=== PATIENT | female | born 1935 | race Caucasian/White ===

== ENCOUNTER 2017-01-17 10:24 | Emergency (ER) | payer MEDICARE ==
[~2017-01-17] VITALS: Ht 165.1 cm; Wt 57.0 kg
[~2017-01-17 10:24] MED LIST: ALEVE220 M1 PO; ALLEGRA-D 2424 HOUR PO; ALPRAZOLAM0.5 MG PO; ALTOPREV40 MG OR; AMLODIPINE BESY1 CA2 PO; AMOX PO; AMOXICILLIN/CL500 MG PO; ASA LO-DOSE81 MG OR; BABY ASPIRIN81 MG PO; BACTRIM DS1 TAB PO; BAYER ASPIRIN E81 MG PO; BENAZEPRIL5 M2 PO; CALCIUM + D600 MG PO; CIPRO XR500 M2 PO; CIPRO500 MG OR; CIPROFLOXACN500 MG PO; CLOBETASOL0.053 EX; Cyclobenzaprine Hcl; DARVOCET N-100100 - OR; DOLACET1 CAP PO; DOXYCYC MONO100 M3 PO; ENABLEX7.5 MG PO; ESTRACE VAG0.1 MG/GM VA; FLEXERIL10 MG PO; FLONASE0.05 %; FLUARIX QUADRIV1 IN2 IM; FLUARIX QUADRIV1 INJ IM; FLULAVAL IM; HYDROCO/APAP1 T10 PO; I-VITE PO; IBUPROFEN800 MG PO; K CLAV PO; LIPITOR10 MG OR; LORTAB 5 PO; LORTAB 5/3255 MG PO; LORTAB 7.5 PO; LORTAB 7.57.5 MG PO; LORTAB5 PO; LOTREL 2.5/101 CAP OR; LOTREL 5/101 CAP PO; LOTREL1 CA1 PO; LOTREL1 CA2 PO; LOVASTATIN10 MG PO; MEDDOSEPAK OR; MEDDOSEPAK PO; MELOXICAM7.5 MG PO; METO50TA52 OR; METO50TA52 PO; METRONIDAZOL500 MG PO; MEVACOR20 MG PO; MYRBETRIQ25 MG PO; NITROFURANTOIN100 MG PO; NORCO1 TA2 PO; PLAVIX75 MG PO; POTASSIUM99 MG PO; PRESERVISION AREDS PO; TEMAZEPAM15 MG PO; TESSALON PER100 MG PO; TIZANIDINE HCL4 MG PO; TOPROL XL50 MG OR; TOVIAZ4 MG PO; ULTRAM50 M1 OR; VIT C OR; ZOFRAN ODT8 MG PO; ZPAK PO; [UNRECOGNIZED DRUG - OTHER] OR
[2017-01-17] MEDS ORDERED: PREDNISONE50 MG PO (11:03)
[2017-01-17 11:21] VITALS: BP 114/53
== END 2017-01-17 11:21 | disposition home or self-care (01) ==
LOC: ED 10:24
DX: M54.12 Radiculopathy, cervical region (principal); M79.602 Pain in left arm; M25.512 Pain in left shoulder; M25.522 Pain in left elbow

== ENCOUNTER 2017-03-12 10:35 | Emergency (ER) | payer MEDICARE, OTHER ==
[~2017-03-12] VITALS: Ht 165.1 cm; Wt 55.0 kg
[~2017-03-12 10:35] MED LIST changes: +PREDNISONE50 MG PO
[2017-03-12 12:08] VITALS: BP 123/64
== END 2017-03-12 12:08 | disposition left against medical advice (07) ==
LOC: ED 10:35 → LWOBS 12:08
DX: Z91.19 Patient's noncompliance with other medical treatment and regimen (principal)

== ENCOUNTER 2017-08-28 12:47 | Emergency (ER) | payer MEDICARE, OTHER ==
[~2017-08-28] VITALS: Ht 165.1 cm; Wt 54.5 kg
[2017-08-28 14:26] LABS: URINE BLOOD DIPSTICK LARGE (NEGATIVE); URINE COLOR YELLOW; URINE GLUCOSE - DIPSTICK NEGATIVE (NEGATIVE); URINE KETONE NEGATIVE (NEGATIVE); URINE NITRITE - DIPSTICK NEGATIVE (Negative); URINE PROTEIN - DIPSTICK >=300 mg/dL (NEG-TRACE); URINE SPECIFIC GRAVITY 1.025; URINE UROBILINOGEN - DIPSTICK 0.2 E.U./dL (0.2)
[2017-08-28 14:28] LABS: URINE BILIRUBIN - DIPSTICK NEGATIVE (NEGATIVE); URINE CLARITY CLOUDY; URINE LEUK ESTERASE MODERATE (NEGATIVE)
[2017-08-28 14:36] LABS: URINE RBC 25-50 RBC/hpf (0-5)
[2017-08-28 14:37] LABS: URINE BACTERIA MANY hpf; URINE SQUAMOUS EPITHELIAL CELL FEW EPI/hpf (0-FEW); URINE WBC >100 WBC/hpf (0-5)
[2017-08-28] MEDS ORDERED: CEPHALEXIN500 MG PO (14:37)
[2017-08-28 14:42] VITALS: BP 110/72
== END 2017-08-28 14:43 | disposition home or self-care (01) ==
LOC: ED 12:47
PROVIDERS: Family Medicine
DX: N39.0 Urinary tract infection, site not specified (principal); I10 Essential (primary) hypertension